=== PATIENT | male | born 2000 | race Caucasian/White ===

== ENCOUNTER 2020-04-25 20:51 | Emergency (ER) | payer OTHER, SELFPAY ==
[2020-04-25 21:08] VITALS: BP 128/83; PULSE 78; RESP 14; TEMP 36.6; O2SAT 99
--- NOTE | 2020-04-25 21:31 | ED_ITS ---
HPI - General Adult General Chief complaint: Eye Problems Stated complaint: Left eye swollen, thinks allergies Time Seen by Provider: 04/25/20 21:23 Source: patient Mode of arrival: Ambulatory Limitations: no limitations History of Present Illness HPI narrative: 20-year-old male here for evaluation of swelling under his left eye. Patient states the symptoms started earlier today. He has spent the day hiking. He does not wear glasses or contacts. He does not feel like he has a foreign body sensation in his eye. No vision changes. No trauma. Did noticed a swelling under his left eye earlier today. No problems breathing or swallowing. Review of Systems Constitutional Constitutional: Denies fever(s) and Denies headache(s) Eyes Eyes: Denies blurry vision, Denies exophthalmos, Denies change in vision, Denies diplopia, Denies itchy eyes and Denies eye pain Comments: Swelling under left eye ENT Ears, Nose, Mouth, and Throat: Denies headache(s), Denies lip swelling and Denies sinus pressure Cardiovascular Cardiovascular: Denies dyspnea Respiratory Respiratory: Denies dyspnea Integumentary/Breasts Comments: Swelling/redness under left eye Neurologic Neurologic: Denies behavioral changes and Denies headache(s) Psychiatric Psychiatric: Denies behavioral changes Allergic/Immunologic Allergic/Immunologic: Denies itchy eyes and Denies lip swelling Patient History Medical History Seasonal allergies (Acute) Social History lives independently: Yes Exam Initial Vital Signs Initial Vital Signs: Vital Signs Temperature 97.9 F 04/25/20 21:08 Pulse Rate 78 04/25/20 21:08 Respiratory Rate 14 04/25/20 21:08 Blood Pressure 128/83 04/25/20 21:08 Pulse Oximetry 99 04/25/20 21:08 Const General: cooperative, healthy appearing, comfortable and well developed Limitations: mental status not altered [facility] Head: normal to inspection and normocephalic Ears: hearing grossly normal bilaterally Nose: external nose normal Mouth: oral mucosae normal Teeth and gingiva: dentition normal Eyes Periorbital: periorbital findings abnormal left periorbital swelling (Under left eye.); no ecchymosis and no crepitus Conjunctivae: conjunctivae normal Sclera: sclerae normal Pupils: PERRL Skin Other: Patient with minor swelling with small amount of redness under the left eye. Extrem General: normal to inspection and capillary refill normal Course Orders Ordered: Discontinued Medications Diphenhydramine HCl (Benadryl) 50 mg PO NOW ONE Stop: 04/25/20 21:32 Last Admin: 04/25/20 21:41 Dose: 50 mg Documented by: FAINA Vital Signs Vital signs: Vital Signs - 8 hr 04/25/20 21:08 Temperature 97.9 F Pulse Rate 78 Respiratory Rate 14 Blood Pressure 128/83 Pulse Oximetry 99 Medical Decision Making MDM Narrative Medical decision making narrative: Low suspicion for cellulitis. This does appear to be an allergic reaction. I have lower suspicion for poison melanie or insect bite which was somewhat to the patient's concern. No trauma. No fevers. Patient has no vision changes. No foreign body sensation. Does not were contacts. Patient was given Benadryl. We also discussed other home treatments that he can tried to include cool compresses. We did discuss return precautions. Feel patient could be safely discharged home without further workup. Discharge Plan Departure Patient Disposition: Home Clinical Impression: Allergic reaction Qualifiers: Encounter type: initial encounter Qualified Code(s): T78.40XA - Allergy, unspecified, initial encounter Discharge Date/Time: 04/25/20 22:02 Instructions: DI for Eye Allergic Reaction Activity Restrictions/Additional Instructions: Recommend you take the Benadryl like we discussed. He can also use the cool compresses like we discussed. Return to the emergency department for any new or worsening symptoms
[2020-04-25] MEDS: diphenhydrAMINE 25 MG TABLET 50 MG PO (21:41)
== END 2020-04-25 22:02 | disposition home or self-care (01) ==
PROVIDERS: Emergency Provider Emergency Medicine
DX: T78.40XA Allergy, unspecified, initial encounter (principal)
CPT/HCPCS: 99282